=== PATIENT | female | born 1950 | race Caucasian/White ===

== ENCOUNTER 2017-01-25 19:25 | Emergency (ER) | payer MEDICARE, OTHER ==
[2017-01-25] MEDS ORDERED: PREDNISONE 20 MG TAB PO ONE (20:58)
[2017-01-25] MEDS ORDERED: MECLIZINE HYDROCHLORIDE 12.5 MG TAB PO ONE ×2 (20:58→21:48)
[2017-01-25] MEDS ORDERED: MECLIZINE HYDROCHLORIDE 12.5 MG TAB ONE ×2 (21:08→21:50)
[2017-01-25] MEDS ORDERED: PREDNISONE 20 MG TAB ONE (21:08)
[2017-01-26 00:53] VITALS: BP 103/67; PULSE 97; RESP 20; TEMP 97.5; O2SAT 94
== END 2017-01-25 21:56 | disposition home or self-care (01) | DRG 153 ==
LOC: ED 19:25
DX: J30.9 Allergic rhinitis, unspecified (principal); H81.10 Benign paroxysmal vertigo, unspecified ear
CPT/HCPCS: 99282

== ENCOUNTER 2017-06-24 19:17 | Emergency (ER) | payer MEDICARE, OTHER ==
[2017-06-24 19:32] VITALS: RESP 18; TEMP 97.6
[2017-06-24 21:07] VITALS: BP 120/67; PULSE 82; O2SAT 97
== END 2017-06-24 21:03 | disposition home or self-care (01) | DRG 605 ==
LOC: ED 19:17
DX: S00.03XA Contusion of scalp, initial encounter (principal); W22.03XA Walked into furniture, initial encounter
CPT/HCPCS: 70450; 99282

== ENCOUNTER 2017-07-20 20:20 | Emergency (ER) | payer MEDICARE, MEDICAID ==
[2017-07-20 20:35] VITALS: BP 108/59; PULSE 74; RESP 16; TEMP 97.5; O2SAT 98
== END 2017-07-20 22:00 | disposition home or self-care (01) | DRG 605 ==
LOC: ED 20:20
DX: S80.01XA Contusion of right knee, initial encounter (principal); W18.30XA Fall on same level, unspecified, initial encounter
CPT/HCPCS: 73560; 99282

== ENCOUNTER 2017-12-15 11:20 | Outpatient (CLI) | payer MEDICARE, MEDICAID ==
[2017-07-20 20:35] VITALS: O2SAT 98
== END 2017-12-15 11:21 | disposition home or self-care (01) | DRG 561 ==
LOC: CONVCARE 11:20
PROVIDERS: ATTEND Orthopaedic Surgery
DX: S92.311D Displaced fracture of first metatarsal bone, right foot, subsequent encounter for fracture with routine healing (principal)
CPT/HCPCS: 73630